=== PATIENT | female | born 2000 | race Caucasian/White ===

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

== ENCOUNTER → 2021-03-06 10:04 | Outpatient (BNVA) | payer OTHER, SELFPAY | PROVIDERS: PCP Nurse Practitioner Family; Visit Provider Nurse Practitioner Family | DX: Z20.822 Contact with and (suspected) exposure to COVID-19 (principal) | CPT/HCPCS: 87635 ==

== ENCOUNTER 2021-05-25 13:51 | Emergency (ER) | payer SELFPAY ==
[2021-05-25 14:14] VITALS: BP 105/57; PULSE 66; RESP 16; TEMP 36.5; O2SAT 96
--- NOTE | 2021-05-25 14:34 | CT_ITS ---
WS: [id number] CT FACIAL BONES HISTORY: syncopal episode, fell and hit R side of face TECHNIQUE: Images obtained from the supraorbital location through the mandible. Soft tissue and bone windows are reviewed. Coronal and sagittal reformats have also been submitted. DLP: 714.[address] scans at [facility] use at least one of these dose optimization techniques: automated e xposure control; mA and/or kV adjustment per patient size (includes targeted exams where dose is matc hed to clinical indication); or iterative reconstruction. COMPARISON: None available. No nasal bone and zygomatic arch fracture. Pterygoid plates are intact. There is a small amount of fl uid layering within the RIGHT maxillary sinus. I cannot confirm an acute fracture. This may be mucope riosteal thickening. There is a small amount of soft tissue induration centered over the anterior RIG HT zygomatic arch. Mastoid air cells are clear. Visualized upper cervical spine is negative. CT/CT facial bones wo con* [id number] IMPRESSION: 1. No facial bone fractures are identified. 2. There is a small amount of fluid layering within the RIGHT maxillary sinus. No fracture is identified. This may be secondary to inflammatory sinusitis or an occult fracture. 3. Minimal soft tissue induration centered over the anterior RIGHT zygomatic a rch.
--- NOTE | 2021-05-25 14:34 | CT_ITS ---
WS: [id number] CT CERVICAL SPINE HISTORY: Syncopal episode, fell and hit head TECHNIQUE: Contiguous 2.5 mm axial imaging performed through the entire cervical spine. Sagittal and coronal reformats also performed. All CT scans at [facility] use at least one of these dose o ptimization techniques: automated exposure control; mA and/or kV adjustment per patient size (include s targeted exams where dose is matched to clinical indication); or iterative reconstruction. DLP: 306.93 mGy.cm COMPARISON: None available. Straightening and slight reversal the normal cervical lordosis. Disc spaces and vertebral body height s are maintained. Craniocervical junction is normal. C2-C3: Normal. C3-C4: Normal. C4-C5: Normal. C5-C6: Normal. C6-C7: Normal. C7-T1: Normal. Soft tissues are normal. Lung apices are clear. CT/CT cervical spin wo con* [id number] IMPRESSION: Normal cervical spine.
--- NOTE | 2021-05-25 14:34 | CT_ITS ---
WS: [id number] CT HEAD NONCONTRAST HISTORY: syncopal episode. fell hit head TECHNIQUE: Contiguous axial imaging performed through the brain in 2.5 mm imaging. Bone and soft tiss ue windows. Sagittal and coronal reformats reviewed. All CT scans at [facility] use at least one of these dose optimization techniques: automated exposure control; mA and/or kV adjustment per pa tient size (includes targeted exams where dose is matched to clinical indication); or iterative recon struction. DLP: 772.25 mGy.cm COMPARISON: None available. No acute intracranial hemorrhage, midline shift or mass effect. No atrophy or prior infarcts or herniation. Ventricles: Normal size with no hydrocephalus. Paranasal sinuses: As visualized are clear. Mastoid air cells: Well pneumatized. Calvarium and scalp: Skull is intact with no soft tissue edema or swelling. CT/CT head wo con* [id number] IMPRESSION: Negative head CT.
--- NOTE | 2021-05-25 14:45 | ECG_ITS ---
[facility] Test Date: 2021-05-25 Pat Name: Anitha Baig Department: Room: Gender: Female Final Inspector: : 2000 Requested By: Eliu Kim Order Number: [id number] Lucien MD: LINH LOPEZ Measurements Intervals [place] Rate: 67 P: 59 OR: 140 QRS: 78 QRSD: 86 T: 41 QT: 361 QTc: 382 Interpretive Statements SINUS RHYTHM POSSIBLE RIGHT VENTRICULAR CONDUCTION DELAY [RSR (QR) IN V1/V2] No previous ECG available for comparison Electronically Signed On 05-25-2021 19:53:[address] PRODUCTION by LINH LOPEZ [id number] f
--- NOTE | 2021-05-25 14:45 | W.ED.SYNCOPE ---
HPI - Syncope General: Chief Complaint: Syncope Stated Complaint: SYNCOPAL EPISODE LAST PM:FELL/R FACIAL INJURY Time Seen by Provider: 05/25/21 14:29 History of Present Illness: HPI narrative: Patient is a 21-year-old female comes to the ED with right-sided facial pain and headache after fall yesterday. Patient says last night she had a syncopal episode and fell and hit the floor at her house. Syncopal episode was unwitnessed and patient says she woke up and had some soreness to the right side of her face and head. She thinks she was out for approximately 1 minute at the longest. She is currently having symptoms of a headache right sided, face and head pain and some lightheaded/dizziness since fall. Syncopal episode occurred when she got up to walk to the kitchen to get some food. She states that she all of a sudden got a feeling of nausea and then felt like she was going to pass out. She tried to lower herself to the ground and then woke up with her face on the floor. Associated symptoms: Reports headache(s) and lightheadedness; Deny abdominal pain, chest pain, fever(s) or nausea Review of Systems Const: Denies: fever(s), chills or fatigue Eyes: Denies: change in vision or eye discomfort ENMT: Denies: throat pain, odynophagia, nasal discharge or nasal congestion Card: Reports: lightheadedness and syncope; Denies: chest pain, palpitations, edema, swelling of feet/ankles, dyspnea on exertion or orthopnea Resp: Denies: dyspnea, productive cough or non-productive cough GI: Denies: abdominal pain, nausea, vomiting, diarrhea, constipation or hematochezia : Denies: flank pain, dysuria or hematuria Musc: Denies: neck pain, back pain or extremity swelling Skin/Breast: Denies: rash or new lesions Neuro: Reports: headache(s) and dizziness; Denies: numbness in extremities or weakness in extremities PFSH ED PFSH: Family History Grandfather Heart disease maternal and paternal Hypertension maternal Stroke maternal Thyroid condition maternal Grandmother Breast cancer, Onset Age: 64 paternal great Denies family history of Colon cancer Ovarian cancer Diabetes Clotting disorder Hyperlipidemia Anesthesia complication Bleeding disorder Uterine cancer Social History Smoking and tobacco status: never smoked Second hand smoke exposure: No Smoking risk assessment/counseling performed?: No Alcohol intake: never Desire information about alcohol rehabilitation?: No Counseling given: No Desire information about substance/drug rehabilitation?: No Counseling given: No Lives independently: Yes Household members: family Housing: House Marital status: Single Number of children: 0 Female Reproductive History: Date of last menstrual period: 05/11/21 Physical Exam Const: COMMON NORMALS: no acute distress, patient oriented x3, healthy appearing and alert GENERAL APPEARANCE: cooperative and comfortable HENMT: COMMON NORMALS: normocephalic HEAD & SCALP: normocephalic; no Wilks's sign and no raccoon eyes FACE & SINUS: Facial tenderness on exam of face and sinuses on the right maxilla; no ecchymosis, no erythema and no edema MOUTH: Normal oral and palatal mucosa present THROAT: posterior oropharynx normal and uvula midline Neck/C-Spine: COMMON NORMALS: supple GENERAL: Yes normal visual inspection CERVICAL SPINE: Yes cervical ROM normal, No Cervical spine tenderness, Yes Paracervical muscle tenderness right>left and Yes Trapezius muscle tenderness right Resp: COMMON NORMALS: normal respiratory effort, No retractions, No use of accessory muscles and clear to auscultation bilaterally AUSCULTATION: clear to auscultation bilaterally Cardio: COMMON NORMALS: regular rate, regular rhythm, S1 normal heart sound present, S2 normal heart sound present, No gallops present (Cardio), No clicks present (Cardio), No murmurs present (Cardio) and Peripheral pulses 2+ throughout RATE: regular rate RHYTHM: regular rhythm HEART SOUNDS: S1 normal heart sound present and S2 normal heart sound present PERIPHERAL PULSES: Peripheral pulses 2+ throughout GI: COMMON NORMALS: Normal to inspection, nondistended, normoactive bowel sounds present, Soft to palpation, non-tender and no masses PALPATION: Yes Soft to palpation : COMMON NORMALS: Yes no CVA tenderness BLADDER/KIDNEY EXAM: Yes no CVA tenderness Back/Pelvis: COMMON NORMALS: no CVA tenderness Extremity: COMMON NORMALS: normal to inspection Neuro: COMMON NORMALS: patient oriented x3, CN's II-XII intact bilaterally, moves all extremities, no focal motor deficits and no sensory deficits noted SENSORIUM/ORIENTATION: Yes alert SPEECH: speech normal SENSORY EXAM: Yes extremities (normal sensation to light touch extremities bilaterally) MOTOR EXAM: 5/5 motor strength present throughout Skin: GENERAL SKIN EXAM: dry skin Course Vital Signs: Vital signs: Vital Signs Temperature 97.7 F 05/25/21 14:14 Pulse Rate 66 05/25/21 14:14 Respiratory Rate 16 05/25/21 14:14 Blood Pressure 105/57 05/25/21 14:14 Pulse Oximetry 96 05/25/21 14:14 MDM - Syncope MDM Narrative: Medical decision making narrative: Patient is a 21-year-old female comes to the ED with headache after having a fall. Yesterday patient got up and was walking to the kitchen and she had a brief syncopal episode causing her to fall to the ground. she is having some pain to the right side of her face, headache, and neck. Vitals stable. Patient is a healthy appearing 21-year-old female in no acute distress or pain. Patient has normal neuro exam with no deficits noted. She has some mild tenderness over the right maxillary side of face. No other acute findings on exam. CT of head, face and cervical spine showed no acute fractures or findings. EKG showed normal sinus rhythm with a rate of [address] segment elevation or depression seen or any other acute findings noted. Patient was given a dose of Tylenol here in the ED to help with her headache. Patient diagnosed with vasovagal syncopal episode and a minor head injury. She was discharged home and told to follow-up with her PCP in 5 to 7 days for reevaluation. Return to ED precautions given. Patient understood and agreed with plan. Imaging Data^: CT Head: Attestation: I personally reviewed and interpreted this imaging study as follows: Radiologist's impression: [address] [address] [address] Scan Report Signed Patient: Anitha Baig Unit #: [id number] : 2000 Age/Sex: 21 / F ADM Date: 05/25/21 Loc: ER Room/Bed: Attending Dr: Ordering Provider/Ordering MD: Eliu Kim Date of Service: 05/25/21 Procedure(s): CT head wo con* [id number] Accession Number(s): [id number] Report Number: [id number] WS: [id number] CT HEAD NONCONTRAST HISTORY: syncopal episode. fell hit head TECHNIQUE: Contiguous axial imaging performed through the brain in 2.5 mm imaging. Bone and soft tissue windows. Sagittal and coronal reformats reviewed. All CT scans at [facility] use at least one of these dose optimization techniques: automated exposure control; mA and/or kV adjustment per patient size (includes targeted exams where dose is matched to clinical indication); or iterative reconstruction. DLP: 772.25 mGy.cm COMPARISON: None available. No acute intracranial hemorrhage, midline shift or mass effect. No atrophy or prior infarcts or herniation. Ventricles: Normal size with no hydrocephalus. Paranasal sinuses: As visualized are clear. Mastoid air cells: Well pneumatized. Calvarium and scalp: Skull is intact with no soft tissue edema or swelling. CT/CT head wo con* [id number] IMPRESSION: Negative head CT. Dictated By: Marilia Pal DO Signed By: Marilia Pal DO Signed Date/Time: 05/25/21 1517 DD/ [address]: Attestation: I personally reviewed and interpreted this imaging study as follows: Radiologist's impression: [address] [address] [address] Scan Report Signed Patient: Anitha Baig Unit #: [id number] : 2000 Age/Sex: 21 / F ADM Date: 05/25/21 Loc: ER Room/Bed: Attending Dr: Ordering Provider/Ordering MD: Eliu Kim Date of Service: 05/25/21 Procedure(s): CT facial bones wo con* [id number] Accession Number(s): [id number] Report Number: [id number] WS: [email or web address] CT FACIAL BONES HISTORY: syncopal episode, fell and hit R side of face TECHNIQUE: Images obtained from the supraorbital location through the mandible. Soft tissue and bone windows are reviewed. Coronal and sagittal reformats have also been submitted. DLP: 714.[address] scans at [facility] use at least one of these dose optimization techniques: automated exposure control; mA and/or kV adjustment per patient size (includes targeted exams where dose is matched to clinical indication); or iterative reconstruction. COMPARISON: None available. No nasal bone and zygomatic arch fracture. Pterygoid plates are intact. There is a small amount of fluid layering within the RIGHT maxillary sinus. I cannot confirm an acute fracture. This may be mucoperiosteal thickening. There is a small amount of soft tissue induration centered over the anterior RIGHT zygomatic arch. Mastoid air cells are clear. Visualized upper cervical spine is negative. CT/CT facial bones wo con* [id number] IMPRESSION: 1. No facial bone fractures are identified. 2. There is a small amount of fluid layering within the RIGHT maxillary sinus. No fracture is identified. This may be secondary to inflammatory sinusitis or an occult fracture. 3. Minimal soft tissue induration centered over the anterior RIGHT zygomatic arch. Dictated By: Mrailia Pal DO Signed By: Marilia Pal DO Signed Date/Time: 05/25/21 1525 DD/ [address] [place] [address] CT Scan Report Signed Patient: Anitha Baig Unit #: [id number] : 2000 Age/Sex: 21 / F ADM Date: 05/25/21 Loc: ER Room/Bed: Attending Dr: Ordering Provider/Ordering MD: Eliu Kim Date of Service: 05/25/21 Procedure(s): CT cervical spin wo con* [id number] Accession Number(s): [id number] Report Number: [id number] WS: [email or web address] CT CERVICAL SPINE HISTORY: Syncopal episode, fell and hit head TECHNIQUE: Contiguous 2.5 mm axial imaging performed through the entire cervical spine. Sagittal and coronal reformats also performed. All CT scans at [facility] use at least one of these dose optimization techniques: automated exposure control; mA and/or kV adjustment per patient size (includes targeted exams where dose is matched to clinical indication); or iterative reconstruction. DLP: 306.93 mGy.cm COMPARISON: None available. Straightening and slight reversal the normal cervical lordosis. Disc spaces and vertebral body heights are maintained. Craniocervical junction is normal. C2-C3: Normal. C3-C4: Normal. C4-C5: Normal. C5-C6: Normal. C6-C7: Normal. C7-T1: Normal. Soft tissues are normal. Lung apices are clear. CT/CT cervical spin wo con* [id number] IMPRESSION: Normal cervical spine. Dictated By: Marilia Pal DO Signed By: Marilia Pal DO Signed Date/Time: 05/25/211527 DD/ 25 EKG Data^: EKG 1: Attestation: I personally reviewed and interpreted this EKG as follows: EKG interpretation date: 05/25/21 Interpretation: Normal sinus rhythm, no ST segment elevation or depression seen. 67 bpm. No other acute findings noted. Discharge Plan Discharge Patient Disposition: Home Clinical Impression: Vasovagal syncope Minor head injury Qualifiers: Encounter type: initial encounter Qualified Code(s): S09.90XA - Unspecified injury of head, initial encounter Condition: Stable Prescriptions: No Action Nexplanon 68 mg implant subdermal RF: 0 citalopram [Celexa] 10 mg tablet 10 mg PO DAILY 30 Days Qty: 30 RF: 5 Naprosyn 500 mg tablet 500 mg PO BID PRN (Reason: pain) Qty: 20 RF: 0 Discharge Orders: Discharge ED (Routine); Ordered 05/25/21 Ordered By: Eliu Kim Discharge Diet: Regular Discharge Activity: Increase activity as tolerated Patient Instructions: Syncope (DC), Head Injury (ED) Activity Restrictions/Additional Instructions: Follow-up with medical provider as directed in 5 to 7 days for reevaluation. Take [id number] Tylenol or Motrin for any headaches or pain.. Return to the ER or your medical provider if condition worsens. Please read and understand discharge instructions. Thank you for choosing [facility] for your healthcare needs today. Please realize this is an emergency room and that we are providing you with a medical screening exam and this may not be complete and all inclusive of all the testing and or work up that you may need to determine your ailment or severity of your illness. It is very important that you follow up as instructed or that you return to the Emergency Department should you have concerns or if your condition changes or worsens in any way. Stand Alone Forms: Work/School Release Coding Level of Care Code ED Fur Mixer for Chg Fwd Exam Comprehensive
[2021-05-25] MEDS: acetaminophen 500 mg Tablet 1000 MG PO (15:10)
== END 2021-05-25 16:04 | disposition home or self-care (01) ==
PROVIDERS: Emergency Provider Physician Assistant
DX: R55 Syncope and collapse (principal); S09.8XXA Other specified injuries of head, initial encounter; W19.XXXA Unspecified fall, initial encounter
CPT/HCPCS: 70450; 70486; 72125; 93005; 99283

== ENCOUNTER → 2021-08-23 09:00 | Outpatient (BNVA) | payer BC, SELFPAY | PROVIDERS: Visit Provider Nurse Practitioner Family | DX: J02.9 Acute pharyngitis, unspecified (principal) | CPT/HCPCS: 87071; 87880 ==

== ENCOUNTER → 2022-04-10 11:25 | Outpatient (BNVA) | payer BC, SELFPAY | PROVIDERS: Visit Provider Nurse Practitioner Family | DX: J02.9 Acute pharyngitis, unspecified (principal); Z20.822 Contact with and (suspected) exposure to COVID-19 | CPT/HCPCS: 87071; 87426; 87880 ==

== ENCOUNTER → 2022-05-17 14:25 | Outpatient (BNVA) | payer BC, SELFPAY | PROVIDERS: Visit Provider Nurse Practitioner Women's Health | DX: Z01.419 Encounter for gynecological examination (general) (routine) without abnormal findings (principal); N92.1 Excessive and frequent menstruation with irregular cycle; Z97.5 Presence of (intrauterine) contraceptive device; Z11.3 Encounter for screening for infections with a predominantly sexual mode of transmission; Z00.00 Encounter for general adult medical examination without abnormal findings; Z30.46 Encounter for surveillance of implantable subdermal contraceptive | CPT/HCPCS: 86592; 86803; 87340; 87491; 87591; 87661; 87806; 88175 ==

== ENCOUNTER → 2023-10-17 08:10 | Outpatient (BNVA) | payer SELFPAY | PROVIDERS: Visit Provider Nurse Practitioner Women's Health | DX: Z30.9 Encounter for contraceptive management, unspecified (principal); Z30.8 Encounter for other contraceptive management; Z30.017 Encounter for initial prescription of implantable subdermal contraceptive | CPT/HCPCS: 81025 ==